=== PATIENT | female | born 1940 | race Hispanic/Latino ===

== ENCOUNTER 2023-06-16 18:05 | Emergency (ER) | payer OTHER ==
--- NOTE | 2023-06-16 18:36 | ER ---
Nurse's Notes [facility] Name: Tamika Dowling Age: 83 yrs Sex: Female : 1940 Arrival Date: 06/16/2023 Time: 18:05 Bed IW1 Private MD: Diagnosis: Encounter for examination of blood pressure without abnormal findings Presentation: 06/15 18:24 Chief complaint: Random BP check at home 89/47. Pt has no complaints. Coronavirus hb screen: At this time, the client does not indicate any symptoms associated with coronavirus-19. Ebola Screen: No symptoms or risks identified at this time. Initial Sepsis Screen: Does the patient meet any 2 criteria? No. Patient's initial sepsis screen is negative. Does the patient have a suspected source of infection? No. Patient's initial sepsis screen is negative. Risk Assessment: Do you want to hurt yourself or someone else? Patient reports no desire to harm self or others. Onset of symptoms was June 16, 2023. 18:24 Method Of Arrival: Ambulatory hb 18:24 Acuity: TERRA 4 hb Triage Assessment: 18:26 General: Appears in no apparent distress. Behavior is calm, cooperative. Pain: Denies hb pain. Neuro: Level of Consciousness is awake, alert, obeys commands, Oriented to person, place, time, situation. Cardiovascular: Patient's skin is warm and dry. Respiratory: Respiratory effort is even, unlabored, Respiratory pattern is regular, symmetrical. Historical: - Allergies: 18:26 No Known Allergies; hb - Home Meds: 18:35 None [Active]; hb - PMHx: 18:35 None; hb - PSHx: 18:35 None; hb - Immunization history:: Adult Immunizations up to date. - Infectious Disease History:: Denies. - Social history:: Smoking status: Patient denies any tobacco usage or history of. Screenin:35 [facility] ED Fall Risk Assessment (Adult) History of falling in the last 3 months, hb including since admission No falls in past 3 months (0 pts) Confusion or Disorientation No (0 pts) Intoxicated or Sedated No (0 pts) Impaired Gait No (0 pts) Mobility Assist Device Used No (0 pt) Altered Elimination No (0 pt) Score/Fall Risk Level 0 - 2 = Low Risk Oriented to surroundings, Maintained a safe environment. Abuse screen: Denies threats or abuse. Denies injuries from another. Nutritional screening: No deficits noted. Tuberculosis screening: No symptoms or risk factors identified. Assessment: 18:27 General: See triage assessment . hb Vital Signs: 18:24 BP 132 / 66; Pulse 70; Resp 16; Temp 98.1; Pulse Ox 100% on R/A; Weight 54.43 kg; hb Height 5 ft. 4 in. ; Pain 0/10; 18:24 Body Mass Index 20.60 (54.43 kg, 162.56 cm) hb 18:24 Pain Scale: Adult hb ED Course: 18:08 Patient arrived in ED. mg5 18:18 Dustin José PA is PHCP. cp 18:18 Juan Carlos Zhu MD is Attending Physician. cp 18:26 Triage completed. hb 18:26 Arm band placed on. hb 18:35 Patient has correct armband on for positive identification. Provided Education on: hb tests. 18:35 No provider procedures requiring assistance completed. Patient did not have IV access hb during this emergency room visit. 19:07 Urinalysis W/Microscopic Sent. as6 19:07 Urine collected: clean catch specimen. as6 Administered Medications: No medications were administered Medication: 18:35 VIS not applicable for this client. hb Outcome: 18:36 Discharge ordered by MD. cp 19:31 Discharge ordered by MD. cp 19:48 Discharged to home ambulatory, with family, cm10 19:48 Condition: good 19:48 Discharge instructions given to patient, Instructed on discharge instructions, follow up and referral plans. Demonstrated understanding of instructions, follow-up care, 19:48 Patient left the ED. cm10 Signatures: Dustin José PA PA cp Baxter, Heather, RN RN hb Jose Luo RN RN as6 Iris Johnson RN RN cm10 Kate White mg5 Corrections: (The following items were deleted from the chart) 18:33 18:26 PMHx: None; hb hb
--- NOTE | 2023-06-16 18:36 | EDPHYS ---
Physician Documentation [facility] Name: Tamika Dowling Age: 83 yrs Sex: Female : 1940 Arrival Date: 06/16/2023 Time: 18:05 Bed IW1 Private MD: ED Physician Juan Carlos Zhu HPI: 06/15 18:30 This 83 yrs old Female presents to ER via Ambulatory with complaints of Blood cp Pressure. 18:30 Patient is a 83-year-old female who presents to the emergency department with concern cp for low blood pressure. Patient is here with her daughter who reports that patient has no other complaints but that they checked her blood pressure with a home cuff that showed that her blood pressure was in the 80s systolic and so they became concerned and came to the emergency room. Patient does not have any complaints at this time. 18:50 Patient requesting urine test for infection. cp Historical: - Allergies: 18:26 No Known Allergies; hb - Home Meds: 18:35 None [Active]; hb - PMHx: 18:35 None; hb - PSHx: 18:35 None; hb - Immunization history:: Adult Immunizations up to date. - Infectious Disease History:: Denies. - Social history:: Smoking status: Patient denies any tobacco usage or history of. ROS: 18:33 Constitutional: Negative for body aches, chills, fever, poor PO intake, cp 18:33 Eyes: Negative for injury, pain, redness, and discharge, cp 18:33 Cardiovascular: Negative for chest pain, palpitations, 18:33 Respiratory: Negative for cough, shortness of breath, wheezing, 18:33 Abdomen/GI: Negative for abdominal pain, nausea, vomiting, and diarrhea, 18:33 : Negative for urinary symptoms, 18:33 Neuro: Negative for altered mental status, dizziness, headache, weakness, 18:33 All other systems are negative, Exam: 18:35 Constitutional: The patient appears in no acute distress, alert, awake, comfortable, cp non-diaphoretic, non-toxic, well developed, well nourished, 18:35 Head/Face: Normocephalic, atraumatic. cp 18:35 Eyes: Periorbital structures: appear normal, Conjunctiva: normal, no exudate, no injection, Sclera: no appreciated abnormality, Lids and lashes: appear normal, bilaterally, 18:35 ENT: External ear(s): are unremarkable, Nose: is normal, Mouth: Lips: moist, Oral mucosa: pink and intact, moist, Posterior pharynx: Airway: no evidence of obstruction, patent, 18:35 Chest/axilla: Inspection: normal, 18:35 Cardiovascular: Rate: normal, 18:35 Respiratory: the patient does not display signs of respiratory distress, Respirations: normal, no use of accessory muscles, no retractions, labored breathing, is not present, Breath sounds: are clear throughout, no decreased breath sounds, 18:35 Abdomen/GI: Exam negative for discomfort, distension, guarding, Inspection: abdomen appears normal, 18:35 Back: pain, is absent, ROM is normal, 18:35 Neuro: Orientation: no acute changes, Mentation: no acute changes, per family, Motor: moves all fours, strength is normal, Gait: is steady, Vital Signs: 18:24 BP 132 / 66; Pulse 70; Resp 16; Temp 98.1; Pulse Ox 100% on R/A; Weight 54.43 kg; hb Height 5 ft. 4 in. ; Pain 0/10; 18:24 Body Mass Index 20.60 (54.43 kg, 162.56 cm) hb 18:24 Pain Scale: Adult hb MDM: 18:36 Patient medically screened. cp 18:45 Differential diagnosis: viral Infection, bacterial infection, URI, UTI. cp 19:30 Data reviewed: vital signs, nurses notes, lab test result(s), and as a result, I will cp discharge patient. 06/15 18:47 Order name: Urinalysis W/Microscopic; Complete Time: 19:30 cp Administered Medications: No medications were administered Disposition Summary: 06/16/23 19:31 Discharge Ordered Notes: Location: Home(06/16/23 19:31) cp Problem: new(06/16/23 19:31) cp Symptoms: have improved(06/16/23 19:31) cp Condition: Stable(06/16/23 19:31) cp Diagnosis - Encounter for examination of blood pressure without abnormal findings cp Followup: cp - With: Private Physician - When: As needed - Reason: Worsening of condition Discharge Instructions: - Discharge Summary Sheet cp - Form - Blood Pressure Record Sheet cp - How to Take Your Blood Pressure cp Forms: - Medication Reconciliation Form cp - Thank You Letter cp - Antibiotic Education cp - Prescription Opioid Use cp - Patient Portal Instructions cp - Leadership Thank You Letter cp Signatures: Dispatcher [employer] [facility] Dustin José PA PA cp Deyanira Peña, RN RN hb Corrections: (The following items were deleted from the chart) 18:33 18:26 PMHx: None; hb hb 18:47 18:36 Home cp cp 18:47 18:36 new cp cp 18:47 18:36 have improved cp cp 18:47 18:36 Stable cp cp 18:47 18:36 Encounter for examination of blood pressure cp cp 18:48 18:47 Urinalysis W/Microscopic+[id number] ordered. [facility] 06/16 19:40 06/15 18:30 Patient is a 83-year-old female who presents to the emergency department cp with concern for low blood pressure. Patient is here with her daughter who reports that patient has no other complaints but that they checked her blood pressure with a home cuff that showed that her blood pressure was in the 80s systolic and so they became concerned and came to the emergency room. Patient does not have any complaints at this time. cp 06/16 19:44 06/15 19:40 Differential diagnosis: viral Infection, bacterial infection, URI, UTI, cp cp
[2023-06-16 19:17] LABS: Specific Gravity < 1.005 (1.005-1.030); Sqamous Epithelial <5 /HPF (None Seen); Urine Bacteria None Seen /HPF (<20); Urine Bilirubin NEGATIVE (Negative); Urine Blood Negative (Negative); Urine Clarity Clear (Clear); Urine Color Colorless (Yellow); Urine Culture Reflex Order NOT NEEDED; Urine Glucose NEGATIVE (Negative); Urine Ketones NEGATIVE (Negative); Urine Micro Reflex YN NO BILL MICROSCOPIC; Urine Nitrite NEGATIVE (Negative); Urine Protein NEGATIVE (Negative); Urine RBC <5 /HPF (None Seen); Urine Urobilinogen Normal (Normal); Urine WBC <5 /HPF (<5); Urine pH 6.5 (5.0-7.0)
[2023-06-16 21:06] VITALS: BP 132/66; TEMP 98.1; O2SAT 100
== END 2023-06-16 19:48 | disposition home or self-care (01) ==
LOC: ER 18:05
DX: Z71.1 Person with feared health complaint in whom no diagnosis is made (principal)
CPT/HCPCS: 81001; 99283